=== PATIENT | male | born 1980 | race African-American/Black ===

== ENCOUNTER 2023-12-29 15:24 | Emergency (ER) | payer OTHER ==
[2023-12-29 15:39] LABS: Glucose,Whole Blood 82 mg/dL (70-110)
[2023-12-29 15:40] VITALS: RESP 18
--- NOTE | 2023-12-29 18:12 | US ---
EXAMINATION TYPE: US venous doppler duplex UE RT DATE OF EXAM: 12/29/2023 COMPARISON: NONE CLINICAL INDICATION: Unknown, 43 years old with history of pain, hx DVT; rt upper medial arm pain, hx t lt arm DVT 2018 SIDE PERFORMED: right FINDINGS: Right Arm: Positive for DVT DVT noted in the lateral right brachial vein IMPRESSION: Exam positive for DVT of the right brachial vein.
--- NOTE | 2023-12-29 19:07 | ED ---
General Adult HPI - General Chief complaint: Extremity Injury, Upper Stated complaint: Right Shoulder Pain Time Seen by Provider: 12/29/23 16:00 Source: patient Mode of arrival: ambulatory Limitations: no limitations - History of Present Illness Initial comments: 43-year-old male who identifies as a female who presents to the emergency department reporting pain in the right bicep. Patient states that the pain has been going on for the past 2 days. Extends from the right elbow to the right bicep. Patient has had similar pain in the left arm and was found to have a DVT several years ago. Patient was on anticoagulation at that time but has subsequently come off. Patient reports that he is an intravenous drug user. No fevers. No redness or purulent drainage from the site. Denies any numbness or tingling into the hand. Patient denies any chest pain or shortness of breath. no other alleviating, precipitating or modifying factors - Related Data Previous Rx's Medication Instructions Recorded Apixaban [Eliquis Starter Pack 5 - 10 mg PO DIRECTED 30 Days 12/29/23 (for VTE)] #1 each Allergies Allergy/AdvReac Type Severity Reaction Status Date / Time chocolate Allergy Nausea & Verified 12/29/23 15:37 Vomiting & Diarrhea coconut Allergy Rash/Hives Verified 12/29/23 15:37 peanut Allergy Anaphylaxis Verified 12/29/23 15:37 pineapple Allergy Rash/Hives Verified 12/29/23 15:37 sulfamethoxazole Allergy Anaphylaxis Verified 12/29/23 15:37 [From Bactrim] trimethoprim [From Bactrim] Allergy Anaphylaxis Verified 12/29/23 15:37 watermelon Allergy Rash/Hives Verified 12/29/23 15:37 Review of Systems ROS Statement: Those systems with pertinent positive or pertinent negative responses have been documented in the HPI. ROS Other: All systems not noted in ROS Statement are negative. Past Medical History Past Medical History: Hypertension Additional Past Medical History / Comment(s): enlarged aortic valve, borderline personality disorder. History of Any Multi-Drug Resistant Organisms: None Reported Additional Past Surgical History / Comment(s): reconstructive surgery due to history of trauma Past Psychological History: Anxiety, PTSD, Schizoaffective Disorder Smoking Status: Current every day smoker Past Alcohol Use History: Abuse, Daily Past Drug Use History: Cocaine, Heroin, Marijuana, Methamphetamine General Exam Limitations: no limitations General appearance: alert, in no apparent distress Head exam: Present: atraumatic, normocephalic, normal inspection Eye exam: Present: normal appearance, PERRL, EOMI. Absent: scleral icterus, conjunctival injection, periorbital swelling ENT exam: Present: normal exam, mucous membranes moist Neck exam: Present: normal inspection. Absent: tenderness, meningismus, lymphadenopathy Respiratory exam: Present: normal lung sounds bilaterally. Absent: respiratory distress, wheezes, rales, rhonchi, stridor Cardiovascular Exam: Present: regular rate, normal rhythm, normal heart sounds. Absent: systolic murmur, diastolic murmur, rubs, gallop, clicks GI/Abdominal exam: Present: soft, normal bowel sounds. Absent: distended, tenderness, guarding, rebound, rigid Extremities exam: Present: normal inspection, full ROM, tenderness (Tenderness to palpation of the right bicep region. No identifiable redness or swelling. 2+ radial and ulnar pulses), normal capillary refill. Absent: pedal edema, joint swelling, calf tenderness Back exam: Present: normal inspection Neurological exam: Present: alert, oriented X3, CN II-XII intact Psychiatric exam: Present: normal affect, normal mood Skin exam: Present: warm, dry, intact, normal color. Absent: rash Course Vital Signs 12/29/23 12/29/23 12/29/23 15:27 17:38 18:36 Temperature 98.1 F 98.1 F Pulse Rate 89 90 87 Respiratory 18 18 18 Rate Blood Pressure 116/79 116/72 119/78 O2 Sat by Pulse 99 97 97 Oximetry 12/29/23 19:35 Temperature 98 F Pulse Rate 88 Respiratory 18 Rate Blood Pressure 115/76 O2 Sat by Pulse 97 Oximetry Medical Decision Making - Medical Decision Making Was pt. sent in by a medical professional or institution (, PA, INSURANCE LOSS ADJUSTER, urgent care, hospital, or intermediate...) When possible be specific @ -[facility] Did you speak to anyone other than the patient for history (EMS, parent, family, police, friend...)? What history was obtained from this source @ -No Did you review nursing and triage notes (agree or disagree)? Why? @ -I reviewed and agree with nursing and triage notes Were old charts reviewed (outside hosp., previous admission, EMS record, old EKG, old radiological studies, urgent care reports/EKG's, intermediate records)? Report findings @ -I reviewed the patient paperwork from [facility] Differential Diagnosis (chest pain, altered mental status, abdominal pain women, abdominal pain men, vaginal bleeding, weakness, fever, dyspnea, syncope, headache, dizziness, GI bleed, back pain, seizure, CVA, palpatations, mental health, musculoskeletal)? @ -Differential Musculoskeletal Muscular strain, contusion, ligament sprain, fracture, arthritis, septic arthritis, bursitis, cellulitis, muscle spasm, nerve compression, DVT, arterial occlusion, herpes zoster, electrolyte abnormality, tumor.... This is not meant to be in all inclusive list EKG interpreted by me (3pts min.). @ -Not done X-rays interpreted by me (1pt min.). @ -None done CT interpreted by me (1pt min.). @ -None done U/S interpreted by me (1pt. min.). @ -Yes and demonstrates acute on chronic DVT What testing was considered but not performed or refused? (CT, X-rays, U/S, labs)? Why? @ -None What meds were considered but not given or refused? Why? @ -None Did you discuss the management of the patient with other professionals (professionals i.e. , PA, INSURANCE LOSS ADJUSTER, lab, RT, psych nurse, social services assistant, minesweeping officer, teacher, business banking officer, case picker)? Give summary @ -Spoke with the radiologist in regards to the read Was smoking cessation discussed for >3mins.? @ -No Was critical care preformed (if so, how long)? @ -No Were there social determinants of health that impacted care today? How? (Homelessness, low income, unemployed, alcoholism, drug addiction, transportation, low edu. Level, literacy, decrease access to med. care, [facility], rehab)? @ -Patient is in rehab Was there de-escalation of care discussed even if they declined (Discuss DNR or withdrawal of care, Hospice)? DNR status @ -No What co-morbidities impacted this encounter? (DM, HTN, Smoking, COPD, CAD, Cancer, CVA, ARF, Chemo, Hep., AIDS, mental health diagnosis, sleep apnea, morbid obesity)? @ -IV drug abuse Was patient admitted / discharged? Hospital course, mention meds given and route, prescriptions, significant lab abnormalities, going to OR and other pertinent info. @ -Discharge. Upon arrival patient placed into room 30. Thorough history and physical exam was performed. Ultrasound was performed which is positive for DVT. Patient is initiated on Eliquis. I spoke with the radiologist and there is no proximal DVT going into the axillary vein. Patient has no chest pain or shortness of breath. I do feel he is stable for discharge home at this time. Needs to follow-up with vascular surgery for continuation of the anticoagulation. Should return to the emergency department for any new or worsening symptoms. Patient agreeable to plan was discharged in stable condition Undiagnosed new problem with uncertain prognosis? @ -Yes Drug Therapy requiring intensive monitoring for toxicity (Heparin, Nitro, Insulin, Cardizem)? @ -No Were any procedures done? @ -No Diagnosis/symptom? @ -Acute right arm pain, acute brachial DVT, history of intravenous drug use Acute, or Chronic, or Acute on Chronic? @ -Acute Uncomplicated (without systemic symptoms) or Complicated (systemic symptoms)? @ -Complicated Side effects of treatment? @ -No Exacerbation, Progression, or Severe Exacerbation? @ -No Poses a threat to life or bodily function? How? (Chest pain, [place], [place], pneumonia, PE, COPD, DKA, ARF, appy, cholecystitis, CVA, Diverticulitis, Homicidal, Suicidal, threat to staff... and all critical care pts) @ -No - Lab Data Lab Results 12/29/23 Range/Units 15:38 POC Glucose (mg/dL) 82 (70-110) mg/dL POC Glu Groundsman ID Ezekiel Vidal Disposition Clinical Impression: DVT of upper extremity (deep vein thrombosis) Disposition: HOME SELF-CARE Condition: Stable Instructions (If sedation given, give patient instructions): Deep Vein Thrombosis (ED) Additional Instructions: Take the Eliquis as directed. Follow-up with the vascular surgeons within the next month so they can continue prescribing your blood thinner. Return for any new or worsening symptoms Prescriptions: Apixaban [Eliquis Starter Pack (for VTE)] 5 - 10 mg PO DIRECTED 30 Days #1 each Is patient prescribed a controlled substance at d/c from ED?: No Referrals: Nonstaff,Physician [Primary Care Provider] - 1-2 days Jarrell Juarez DO [STAFF PHYSICIAN] - 1-2 days Time of Disposition: 19:07
[2023-12-29] MEDS: APIXABAN 5 MG TAB PO STA (19:30)
[2023-12-29 19:42] VITALS: BP 115/76; PULSE 88; TEMP 98
== END 2023-12-29 19:38 | disposition home or self-care (01) ==
LOC: EDSEX 15:24 → EC 15:24
DX: I82.621 Acute embolism and thrombosis of deep veins of right upper extremity (principal); I10 Essential (primary) hypertension; F12.90 Cannabis use, unspecified, uncomplicated; F17.200 Nicotine dependence, unspecified, uncomplicated; Z79.01 Long term (current) use of anticoagulants; Z88.2 Allergy status to sulfonamides; Z91.018 Allergy to other foods
CPT/HCPCS: 36415; 99284

== ENCOUNTER 2023-12-31 19:24 | Emergency (ER) | payer OTHER ==
[2023-12-31 19:40] VITALS: BP 149/91; PULSE 82; RESP 18; TEMP 98.2
--- NOTE | 2023-12-31 19:55 | ED ---
Recheck HPI - General Chief Complaint: Extremity Injury, Upper Stated Complaint: blood clot in arm Time Seen by Provider: 12/31/23 19:33 Source: patient, RN notes reviewed, old records reviewed Mode of arrival: ambulatory Limitations: no limitations - History of Present Illness Initial Comments: This 43-year-old male to the ER for evaluation today. [facility] [place] regards to right upper extremity diagnosis of DVT on Eliquis. Patient states he feels like the pain is changing and feels different than it was when he was initially diagnosed a few days ago. No shortness of breath no chest pain. Patient has been taking Eliquis as prescribed and otherwise has no complaints. Patient was urged to come to the hospital for evaluation MD Complaint: other (Right upper extremity DVT recheck) -: days(s) Returns Today for: persistent/worsening pain related to initial visit Symptoms Since Prior Visit: worsening pain Associated Symptoms: none Treatments Prior to Arrival: other (0) - Related Data Previous Rx's Medication Instructions Recorded Apixaban [Eliquis Starter Pack 5 - 10 mg PO DIRECTED 30 Days 12/29/23 (for VTE)] #1 each Allergies Allergy/AdvReac Type Severity Reaction Status Date / Time chocolate Allergy Nausea & Verified 12/29/23 15:37 Vomiting & Diarrhea coconut Allergy Rash/Hives Verified 12/29/23 15:37 peanut Allergy Anaphylaxis Verified 12/29/23 15:37 pineapple Allergy Rash/Hives Verified 12/29/23 15:37 sulfamethoxazole Allergy Anaphylaxis Verified 12/29/23 15:37 [From Bactrim] trimethoprim [From Bactrim] Allergy Anaphylaxis Verified 12/29/23 15:37 watermelon Allergy Rash/Hives Verified 12/29/23 15:37 Review of Systems ROS Statement: Those systems with pertinent positive or pertinent negative responses have been documented in the HPI. ROS Other: All systems not noted in ROS Statement are negative. Past Medical History Past Medical History: Hypertension Additional Past Medical History / Comment(s): enlarged aortic valve, borderline personality disorder. History of Any Multi-Drug Resistant Organisms: None Reported Additional Past Surgical History / Comment(s): reconstructive surgery due to history of trauma Past Psychological History: Anxiety, PTSD, Schizoaffective Disorder Smoking Status: Current every day smoker Past Alcohol Use History: Abuse, Daily Past Drug Use History: Cocaine, Heroin, Marijuana, Methamphetamine General Exam Limitations: no limitations General appearance: alert, in no apparent distress Head exam: Present: atraumatic, normocephalic, normal inspection Eye exam: Present: normal appearance, PERRL, EOMI. Absent: scleral icterus, conjunctival injection, periorbital swelling ENT exam: Present: normal exam, mucous membranes moist Neck exam: Present: normal inspection. Absent: tenderness, meningismus, lymphadenopathy Respiratory exam: Present: normal lung sounds bilaterally. Absent: respiratory distress, wheezes, rales, rhonchi, stridor Cardiovascular Exam: Present: regular rate, normal rhythm, normal heart sounds. Absent: systolic murmur, diastolic murmur, rubs, gallop, clicks GI/Abdominal exam: Present: soft, normal bowel sounds. Absent: distended, tenderness, guarding, rebound, rigid Extremities exam: Present: normal inspection, full ROM, normal capillary refill. Absent: tenderness, pedal edema, joint swelling, calf tenderness Back exam: Present: normal inspection Neurological exam: Present: alert, oriented X3, CN II-XII intact Psychiatric exam: Present: normal affect, normal mood Skin exam: Present: warm, dry, intact, normal color. Absent: rash Course Vital Signs 12/31/23 19:26 Temperature 98.2 F Pulse Rate 82 Respiratory 18 Rate Blood Pressure 149/91 O2 Sat by Pulse 99 Oximetry - Reevaluation(s) Reevaluation #1: 12/31/23 19:53 Medical records reviewed Reevaluation #2: 12/31/23 19:53 Patient symptoms unchanged Reevaluation #3: 12/31/23 19:53 Patient informed of results questions answered Reevaluation #4: Was pt. sent in by a medical professional or institution (, PA, AUTO SERVICE REPRESENTATIVE, urgent care, hospital, or fci...) When possible be specific @ -no Did you speak to anyone other than the patient for history (EMS, parent, family, police, friend...)? What history was obtained from this source @ -no Did you review nursing and triage notes (agree or disagree)? Why? @ -agree Are old charts reviewed (outside hosp., previous admission, EMS record, old EKG, old radiological studies, urgent care reports/EKG's, fci records)? Report findings @ -yes Differential Diagnosis (chest pain, altered mental status, abdominal pain women, abdominal pain men, vaginal bleeding, weakness, fever, dyspnea, syncope, headache, dizziness, GI bleed, back pain, seizure, CVA, palpatations, mental health, musculoskeletal)? @ -prior EKG interpreted by me (3pts min.). @ -no X-rays interpreted by me (1pt min.). @ -no CT interpreted by me (1pt min.). @ -no U/S interpreted by me (1pt. min.). @ -no What testing was considered but not performed or refused? (CT, X-rays, U/S, labs)? Why? @ -none What meds were considered but not given or refused? Why? @ -none Did you discuss the management of the patient with other professionals (professionals i.e. , PA, AUTO SERVICE REPRESENTATIVE, lab, RT, psych nurse, social worker masters, painter helper spray, teacher, credit compliance officer, counseling case manager)? Give summary @ -no Was smoking cessation discussed for >3mins.? @ -no Was critical care preformed (if so, how long)? @ -no Were there social determinants of health that impacted care today? How? (Homelessness, low income, unemployed, alcoholism, drug addiction, transportation, low edu. Level, literacy, decrease access to med. care, custodial, rehab)? @ -none Was there de-escalation of care discussed even if they declined (Discuss DNR or withdrawal of care, Hospice)? DNR status @ -no What co-morbidities impacted this encounter? (DM, HTN, Smoking, COPD, CAD, Cancer, CVA, ARF, Chemo, Hep., AIDS, mental health diagnosis, sleep apnea, morbid obesity)? @ -none Was patient admitted / discharged? Hospital course, mention meds given and route, prescriptions, significant lab abnormalities, going to OR and other pertinent info. @ - 43 male for recheck of right upper extremity DVT, patient will continue Eliquis as an outpatient and can be discharged home Discharge Undiagnosed new problem with uncertain prognosis? @ -no Drug Therapy requiring intensive monitoring for toxicity (Heparin, Nitro, Insulin, Cardizem)? @ -no Were any procedures done? @ -no Diagnosis/symptom? @ -Right upper extremity pain known DVT Acute, or Chronic, or Acute on Chronic? @ -Acute Uncomplicated (without systemic symptoms) or Complicated (systemic symptoms)? @ -Complicated Side effects of treatment? @ -no Exacerbation, Progression, or Severe Exacerbation? @ -exacerbation Poses a threat to life or bodily function? How? (Chest pain, [place], [place], pneumonia, PE, COPD, DKA, ARF, appy, cholecystitis, CVA, Diverticulitis, Homicidal, Suicidal, threat to staff... and all critical care pts) @ -yes with DVT conversion PE Medical Decision Making - Medical Decision Making 43 male for recheck of right upper extremity DVT, patient will continue Eliquis as an outpatient and can be discharged home Disposition Clinical Impression: DVT of upper extremity (deep vein thrombosis) Disposition: HOME SELF-CARE Condition: Good Instructions (If sedation given, give patient instructions): Deep Vein Thrombosis (ED) Is patient prescribed a controlled substance at d/c from ED?: No Referrals: None,Stated [Primary Care Provider] - 1-2 days Time of Disposition: 20:00
== END 2023-12-31 20:28 | disposition home or self-care (01) ==
LOC: EC 19:24
DX: I82.621 Acute embolism and thrombosis of deep veins of right upper extremity (principal); F17.200 Nicotine dependence, unspecified, uncomplicated; Z88.1 Allergy status to other antibiotic agents; Z88.2 Allergy status to sulfonamides; Z91.010 Allergy to peanuts; Z91.018 Allergy to other foods
CPT/HCPCS: 99283